=== PATIENT | female | born 1970 | race Caucasian/White ===

== ENCOUNTER 2023-01-16 14:35 | Observation (INO) | payer OTHER ==
[2023-01-16] MEDS: Sodium Chloride 0.9% 10 ML Syringe FLUSH PRN ×2 (14:55→15:05)
[2023-01-16 14:58] LABS: BASOPHILS PERCENT AUTO 0.5 % (0.0-1.0); EOSINOPHILS PERCENT AUTO 13.7 % (1.0-3.0); HEMATOCRIT 41.4 % (37.0-47.0); HEMOGLOBIN 13.5 g/dL (12.0-16.0); LYMPHOCYTES PERCENT AUTO 5.1 % (20.5-50.1); MEAN CORPUSCULAR HEMOGLOBIN 29.5 pg (27.0-34.0); MEAN CORPUSCULAR HGB CONC 32.6 g/dL (33.0-35.0); MEAN CORPUSCULAR VOLUME 90.6 fL (80-100); MONOCYTES PERCENT AUTO 7.8 % (2-8); NEUTROPHILS PERCENT AUTO 72.9 % (42.2-75.2); PLATELET COUNT,PLT 339 10^3/uL (150-450); RED BLOOD CELL COUNT 4.57 10^6/uL (4.2-5.4); WHITE BLOOD CELL COUNT,WBC 16.4 10^3/uL (5.0-10.0)
[2023-01-16] MEDS ORDERED: methylPREDNISolone Sodium Succinate 125 MG/2 ML SDV IVPUSH ONE (15:00)
[2023-01-16] MEDS ORDERED: Albuterol/Ipratropium 3.0-0.5 MG/3 ML Neb Soln NEB ONE ×2 (15:00→15:31)
[2023-01-16 15:09] LABS: ANION GAP 13.6 mEq/L (7-13); BLOOD UREA NITROGEN,BUN 11 mg/dL (7-18); CALCIUM 9.7 mg/dL (8.5-10.1); CARBON DIOXIDE,CO2 28 mmol/L (21-32); CHLORIDE,CL 102 mmol/L (98-107); CREATININE 0.79 mg/dL (0.55-1.02); GLUCOSE RANDOM 103 mg/dL (70-99); POTASSIUM,K 3.6 mmol/L (3.5-5.1); SODIUM,NA 140 mmol/L (136-145)
[2023-01-16 15:14] LABS: ESTIMATED GFR 89 mL/min (>=60)
[2023-01-16 15:33] LABS: CORONAVIRUS COVID-19 NAA NEGATIVE (NEGATIVE); INFLUENZA A NAA NEGATIVE (NEGATIVE); INFLUENZA B NAA NEGATIVE (NEGATIVE); RESPIRATORY SYNCYTIAL VIR NAA NEGATIVE (NEGATIVE)
[2023-01-16] MEDS ORDERED: Ketorolac 30 MG/ML SDV IVPUSH ONE (15:38)
[2023-01-16] MEDS ORDERED: cefTRIAXone 1 GM Vial IVPUSH ONE (15:40)
[2023-01-16] MEDS ORDERED: Azithromycin 500 MG in Sodium Chloride 0.9% 250 ML IV ONE (15:41)
[2023-01-16 16:00] LABS: LACTIC ACID 0.7 mmol/L (0.4-2.0)
[2023-01-16] MEDS ORDERED: Ondansetron 4 MG/2 ML SDV IVPUSH PRN (16:13)
[2023-01-16] MEDS ORDERED: Sodium Chloride 0.9% 10 ML Syringe FLUSH PRN (16:13)
[2023-01-16] MEDS ORDERED: Magnesium Hydroxide 400 MG/5 ML Susp 30 ML Cup PO PRN (16:13)
[2023-01-16] MEDS ORDERED: Acetaminophen 325 MG Tab PO PRN (16:13)
[2023-01-16] MEDS ORDERED: Albuterol/Ipratropium 3.0-0.5 MG/3 ML Neb Soln NEB PRN (16:13)
[2023-01-16] MEDS ORDERED: Sennosides/Docusate Sodium 50-8.6 MG Tab PO PRN (16:13)
[2023-01-16] MEDS ORDERED: Polyethylene Glycol 3350 Powder 17 GM Packet PO PRN (16:13)
[2023-01-16] MEDS ORDERED: Benzonatate 100 MG Cap PO PRN (16:17)
[2023-01-16] MEDS ORDERED: Metoprolol Tartrate 5 MG/5 ML SDV IVPUSH PRN (16:20)
[2023-01-16] MEDS ORDERED: hydrALAZINE 20 MG/ML SDV IVPUSH PRN (16:20)
[2023-01-16] MEDS ORDERED: Famotidine 20 MG/2 ML SDV IVPUSH ONE (16:21)
[2023-01-16] MEDS ORDERED: Magnesium Sulfate/Water 2 GM in Premix Bag 1 BAG IV ONE (16:47)
[2023-01-16] MEDS ORDERED: Glucagon,Human Recombinant 1 MG Vial IM PRN (16:48)
[2023-01-16] MEDS ORDERED: 50% Dextrose in Water 50 ML Syringe IVPUSH PRN (16:48)
[2023-01-16] MEDS ORDERED: Benzonatate 100 MG Cap PO SCH (18:00)
[2023-01-16] MEDS: FLUoxetine 10 MG Cap PO SCH (18:17)
[2023-01-16] MEDS: Albuterol/Ipratropium 3.0-0.5 MG/3 ML Neb Soln NEB SCH ×2 (18:30→21:56)
[2023-01-16] MEDS: Insulin Lispro 100 Units/ML 3 ML Vial SUBCUT SCH (18:30)
[2023-01-16] MEDS ORDERED: Albuterol/Ipratropium 3.0-0.5 MG/3 ML Neb Soln NEB SCH (21:00)
[2023-01-16] MEDS: Melatonin 3 MG Tab PO PRN (21:54)
[2023-01-16] MEDS: Saccharomyces Boulardii (Probiotic) 250 MG Cap PO SCH (21:54)
[2023-01-16] MEDS: Benzonatate 100 MG Cap PO PRN (21:55)
[2023-01-16] MEDS: Sodium Chloride 0.9% 10 ML Syringe FLUSH SCH (22:01)
[2023-01-17] MEDS ORDERED: methylPREDNISolone Sodium Succinate 125 MG/2 ML SDV IVPUSH SCH
[2023-01-17] MEDS ORDERED: Sodium Chloride 0.9% 1,000 ML IV SCH (00:45)
[2023-01-17] MEDS: Albuterol/Ipratropium 3.0-0.5 MG/3 ML Neb Soln NEB SCH ×6 (01:21→18:36)
[2023-01-17] MEDS: Benzonatate 100 MG Cap PO PRN (05:24)
[2023-01-17 06:36] LABS: C-REACTIVE PROTEIN 7.94 ng/dL (<=0.30); CALCIUM 9.1 mg/dL (8.5-10.1); CREATININE 0.62 mg/dL (0.55-1.02); EST CRCL DRUG DOSING (CG) 102.05 mL/min; MAGNESIUM 2.1 mg/dL (1.8-2.4)
[2023-01-17 07:04] LABS: BASOPHILS PERCENT AUTO 0.4 % (0.0-1.0); EOSINOPHILS PERCENT AUTO 2.8 % (1.0-3.0); HEMATOCRIT 37.7 % (37.0-47.0); HEMOGLOBIN 12.2 g/dL (12.0-16.0); LYMPHOCYTES PERCENT AUTO 7.1 % (20.5-50.1); MEAN CORPUSCULAR HEMOGLOBIN 29.3 pg (27.0-34.0); MEAN CORPUSCULAR HGB CONC 32.4 g/dL (33.0-35.0); MEAN CORPUSCULAR VOLUME 90.4 fL (80-100); MONOCYTES PERCENT AUTO 8.2 % (2-8); NEUTROPHILS PERCENT AUTO 81.5 % (42.2-75.2); PLATELET COUNT,PLT 308 10^3/uL (150-450); RED BLOOD CELL COUNT 4.17 10^6/uL (4.2-5.4); WHITE BLOOD CELL COUNT,WBC 12.3 10^3/uL (5.0-10.0)
[2023-01-17] MEDS ORDERED: Iopamidol 755 Mg/ML 100 ML Bottle IVPUSH ONE (07:23)
[2023-01-17] MEDS ORDERED: Potassium Chloride 20 MEQ in Premix Bag 1 BAG IV ONE (07:38)
[2023-01-17] MEDS: Insulin Lispro 100 Units/ML 3 ML Vial SUBCUT SCH ×3 (08:41→17:38)
[2023-01-17] MEDS: cefTRIAXone 1 GM Vial IVPUSH SCH (08:48)
[2023-01-17] MEDS: FLUoxetine 10 MG Cap PO SCH (08:48)
[2023-01-17] MEDS: predniSONE 20 MG Tab PO SCH (08:48)
[2023-01-17] MEDS: Famotidine 20 MG Tab PO SCH ×2 (08:48→20:24)
[2023-01-17] MEDS: Saccharomyces Boulardii (Probiotic) 250 MG Cap PO SCH ×2 (08:48→20:23)
[2023-01-17] MEDS: Azithromycin 500 MG in Sodium Chloride 0.9% 250 ML IV SCH (08:49)
[2023-01-17] MEDS ORDERED: Oxymetazoline 0.05% Nasal Spray 30 ML Bottle NAS PRN (09:03)
[2023-01-17] MEDS ORDERED: Loratadine 10 MG Tab PO ONE (09:05)
[2023-01-17] MEDS: Sodium Chloride 0.9% 10 ML Syringe FLUSH SCH ×2 (10:08→21:21)
[2023-01-17] MEDS: Potassium Chloride 10 MEQ Tab.ER PO SCH (10:17)
[2023-01-17] MEDS: Sodium Chloride 0.65% Nasal Spray 45 ML Bottle NAS SCH ×2 (10:30→21:26)
[2023-01-17] MEDS ORDERED: Furosemide 40 MG Tab PO ONE (11:00)
[2023-01-17] MEDS ORDERED: guaiFENesin 600 MG Tab.ER PO ONE (11:00)
[2023-01-17] MEDS: Acetaminophen/oxyCODONE 325-5 MG Tab PO PRN (20:24)
[2023-01-17] MEDS: guaiFENesin 600 MG Tab.ER PO SCH (20:24)
[2023-01-17] MEDS ORDERED: diphenhydrAMINE 50 MG/ML SDV IVPUSH ONE (20:27)
[2023-01-17] MEDS: Temazepam 15 MG Cap PO PRN (23:32)
[2023-01-17] MEDS: guaiFENesin/Dextromethorphan 100-10 MG/5 ML Soln 5 ML Cup PO PRN (23:32)
[2023-01-18] MEDS: Albuterol/Ipratropium 3.0-0.5 MG/3 ML Neb Soln NEB SCH ×6 (01:20→22:48)
[2023-01-18] MEDS: Acetaminophen/oxyCODONE 325-5 MG Tab PO PRN (05:49)
[2023-01-18] MEDS: guaiFENesin/Dextromethorphan 100-10 MG/5 ML Soln 5 ML Cup PO PRN ×2 (05:50→19:51)
[2023-01-18 06:35] LABS: HEMATOCRIT 38.2 % (37.0-47.0); HEMOGLOBIN 12.4 g/dL (12.0-16.0); MEAN CORPUSCULAR HEMOGLOBIN 29.7 pg (27.0-34.0); MEAN CORPUSCULAR HGB CONC 32.5 g/dL (33.0-35.0); MEAN CORPUSCULAR VOLUME 91.4 fL (80-100); PLATELET COUNT,PLT 353 10^3/uL (150-450); RED BLOOD CELL COUNT 4.18 10^6/uL (4.2-5.4); WHITE BLOOD CELL COUNT,WBC 12.9 10^3/uL (5.0-10.0)
[2023-01-18 06:45] LABS: BASOPHILS PERCENT AUTO 0.7 % (0.0-1.0); EOSINOPHILS PERCENT AUTO 11.4 % (1.0-3.0); LYMPHOCYTES PERCENT AUTO 17.2 % (20.5-50.1); MONOCYTES PERCENT AUTO 6.7 % (2-8)
[2023-01-18] MEDS: HYDROmorphone 0.5 MG/0.5 ML Syringe IVPUSH PRN ×4 (06:46→22:43)
[2023-01-18 06:52] LABS: ANION GAP 13.2 mEq/L (7-13); C-REACTIVE PROTEIN 3.09 ng/dL (<=0.30); CALCIUM 8.8 mg/dL (8.5-10.1); CREATININE 0.72 mg/dL (0.55-1.02); EST CRCL DRUG DOSING (CG) 87.87 mL/min; MAGNESIUM 1.8 mg/dL (1.8-2.4); POTASSIUM,K 3.2 mmol/L (3.5-5.1)
[2023-01-18 07:47] LABS: EOSINOPHILS PERCENT MAN 10 % (1-3); LYMPHOCYTES PERCENT MAN 19 % (20-50); MONOCYTES PERCENT MAN 5 % (2-8); SEG NEUTROPHILS PERCENT MAN 66 % (42-75)
[2023-01-18] MEDS: Insulin Lispro 100 Units/ML 3 ML Vial SUBCUT SCH ×3 (08:42→17:11)
[2023-01-18] MEDS: Saccharomyces Boulardii (Probiotic) 250 MG Cap PO SCH ×2 (08:44→20:57)
[2023-01-18] MEDS: Potassium Chloride 10 MEQ Tab.ER PO SCH (08:45)
[2023-01-18] MEDS: guaiFENesin 600 MG Tab.ER PO SCH ×2 (08:46→20:56)
[2023-01-18] MEDS: Loratadine 10 MG Tab PO SCH (08:47)
[2023-01-18] MEDS: FLUoxetine 10 MG Cap PO SCH (08:47)
[2023-01-18] MEDS: predniSONE 20 MG Tab PO SCH (08:47)
[2023-01-18] MEDS: Famotidine 20 MG Tab PO SCH ×2 (08:47→21:06)
[2023-01-18] MEDS: cefTRIAXone 1 GM Vial IVPUSH SCH (08:48)
[2023-01-18] MEDS: Azithromycin 500 MG in Sodium Chloride 0.9% 250 ML IV SCH (08:48)
[2023-01-18] MEDS ORDERED: Benzocaine/Cetylpyridinium/Menthol Lozenge MUCMEM PRN (09:05)
[2023-01-18] MEDS: Sodium Chloride 0.65% Nasal Spray 45 ML Bottle NAS SCH ×2 (10:30→23:10)
[2023-01-18] MEDS: Sodium Chloride 0.9% 10 ML Syringe FLUSH SCH ×3 (10:32→22:46)
[2023-01-18] MEDS: Benzonatate 100 MG Cap PO PRN ×2 (13:50→20:56)
[2023-01-18] MEDS ORDERED: Potassium Chloride 10 MEQ Tab.ER PO ONE (17:00)
[2023-01-18] MEDS ORDERED: Flumazenil 0.1 MG/ML 5 ML MDV IVPUSH PRN (17:42)
[2023-01-18] MEDS ORDERED: LORazepam 2 MG/ML SDV IVPUSH ONE (20:00)
[2023-01-18] MEDS: Temazepam 15 MG Cap PO PRN (20:57)
[2023-01-18] MEDS: Melatonin 3 MG Tab PO PRN (20:57)
[2023-01-19] MEDS: HYDROmorphone 0.5 MG/0.5 ML Syringe IVPUSH PRN (04:06)
[2023-01-19] MEDS: Sodium Chloride 0.9% 10 ML Syringe FLUSH SCH ×2 (04:08→09:21)
[2023-01-19] MEDS: guaiFENesin/Dextromethorphan 100-10 MG/5 ML Soln 5 ML Cup PO PRN (04:09)
[2023-01-19] MEDS: Albuterol/Ipratropium 3.0-0.5 MG/3 ML Neb Soln NEB SCH ×3 (04:41→11:37)
[2023-01-19] MEDS: Acetaminophen/oxyCODONE 325-5 MG Tab PO PRN ×2 (05:33→09:24)
[2023-01-19] MEDS: Benzonatate 100 MG Cap PO PRN (05:39)
[2023-01-19 06:33] LABS: BASOPHILS PERCENT AUTO 0.9 % (0.0-1.0); EOSINOPHILS PERCENT AUTO 13.7 % (1.0-3.0); HEMATOCRIT 38.3 % (37.0-47.0); HEMOGLOBIN 12.2 g/dL (12.0-16.0); LYMPHOCYTES PERCENT AUTO 23.2 % (20.5-50.1); MEAN CORPUSCULAR HEMOGLOBIN 29.4 pg (27.0-34.0); MEAN CORPUSCULAR HGB CONC 31.9 g/dL (33.0-35.0); MEAN CORPUSCULAR VOLUME 92.3 fL (80-100); MONOCYTES PERCENT AUTO 8.4 % (2-8); NEUTROPHILS PERCENT AUTO 53.8 % (42.2-75.2); PLATELET COUNT,PLT 345 10^3/uL (150-450); RED BLOOD CELL COUNT 4.15 10^6/uL (4.2-5.4); WHITE BLOOD CELL COUNT,WBC 11.5 10^3/uL (5.0-10.0)
[2023-01-19 06:44] LABS: C-REACTIVE PROTEIN 1.93 ng/dL (<=0.30); CREATININE 0.74 mg/dL (0.55-1.02); EST CRCL DRUG DOSING (CG) 85.5 mL/min; MAGNESIUM 1.9 mg/dL (1.8-2.4)
[2023-01-19] MEDS: Insulin Lispro 100 Units/ML 3 ML Vial SUBCUT SCH ×2 (08:07→12:10)
[2023-01-19] MEDS: guaiFENesin 600 MG Tab.ER PO SCH (09:20)
[2023-01-19] MEDS: Famotidine 20 MG Tab PO SCH (09:20)
[2023-01-19] MEDS: FLUoxetine 10 MG Cap PO SCH (09:20)
[2023-01-19] MEDS: predniSONE 20 MG Tab PO SCH (09:20)
[2023-01-19] MEDS: Saccharomyces Boulardii (Probiotic) 250 MG Cap PO SCH (09:21)
[2023-01-19] MEDS: Potassium Chloride 10 MEQ Tab.ER PO SCH (09:21)
[2023-01-19] MEDS: Loratadine 10 MG Tab PO SCH (09:21)
[2023-01-19] MEDS: cefTRIAXone 1 GM Vial IVPUSH SCH (09:21)
[2023-01-19] MEDS: Azithromycin 500 MG in Sodium Chloride 0.9% 250 ML IV SCH (09:21)
[2023-01-19] MEDS: Sodium Chloride 0.65% Nasal Spray 45 ML Bottle NAS SCH (09:22)
[2023-01-19] MEDS ORDERED: Furosemide 40 MG Tab PO ONE (11:34)
== END 2023-01-19 12:45 | disposition home or self-care (01) ==
LOC: DL.ED 14:35 → DL.MS 15:54
PROVIDERS: ADMIT Internal Medicine; ATTEND Internal Medicine
DX: J98.4 Other disorders of lung (principal); J21.9 Acute bronchiolitis, unspecified; J96.91 Respiratory failure, unspecified with hypoxia; R79.1 Abnormal coagulation profile; E87.6 Hypokalemia; D72.829 Elevated white blood cell count, unspecified; R79.82 Elevated C-reactive protein (CRP); R79.89 Other specified abnormal findings of blood chemistry; R73.9 Hyperglycemia, unspecified; G25.81 Restless legs syndrome; R00.2 Palpitations; E66.9 Obesity, unspecified; Z20.822 Contact with and (suspected) exposure to COVID-19; Z68.34 Body mass index [BMI] 34.0-34.9, adult; Z79.899 Other long term (current) drug therapy; Z72.0 Tobacco use; Z86.2 Personal history of diseases of the blood and blood-forming organs and certain disorders involving the immune mechanism
CPT/HCPCS: 0241U; 36415; 71045; 71260; 80048; 82947; 83605; 83735; 85025; 85379; 86140; 87040; 94010; 94060; 94640; 94667; 94668; 94760; 94762; 96365; 96366; 96367; 96368; 96374; 96375; 96376; 99284; 99285-25; A9270-GY; G0378; J0456; J0696; J1170; J1200; J1815-GY; J1885; J2060; J2930; J3475; J3480; J3490; J7030; J7050; J7512; J7620-GY; Q9967

== ENCOUNTER 2024-02-20 12:46 | Inpatient (IN) | payer OTHER ==
[2024-02-20] MEDS ORDERED: Sodium Chloride 0.9% 10 ML Syringe FLUSH PRN (13:15)
[2024-02-20] MEDS: Acetaminophen 500 MG Tab PO ONE (13:25)
[2024-02-20] MEDS: Ketorolac 30 MG/ML SDV IVPUSH ONE (13:25)
[2024-02-20] MEDS: Sodium Chloride 0.9% 1,000 ML IV ONE (13:25)
[2024-02-20 13:28] LABS: BASOPHILS PERCENT AUTO 0.5 % (0.0-1.0); EOSINOPHILS PERCENT AUTO 9.4 % (1.0-3.0); HEMATOCRIT 39.8 % (37.0-47.0); LYMPHOCYTES PERCENT AUTO 4.7 % (20.5-50.1); MEAN CORPUSCULAR HEMOGLOBIN 30.1 pg (27.0-34.0); MEAN CORPUSCULAR HGB CONC 32.7 g/dL (33.0-35.0); MEAN CORPUSCULAR VOLUME 92.1 fL (80-100); MONOCYTES PERCENT AUTO 5.1 % (2-8); NEUTROPHILS PERCENT AUTO 80.3 % (42.2-75.2); PLATELET COUNT,PLT 369 10^3/uL (150-450); RED BLOOD CELL COUNT 4.32 10^6/uL (4.2-5.4); WHITE BLOOD CELL COUNT,WBC 17.1 10^3/uL (5.0-10.0)
[2024-02-20 13:55] LABS: LACTIC ACID 0.9 mmol/L (0.4-2.0)
[2024-02-20] MEDS: cefTRIAXone 2 GM Vial IVPUSH ONE (13:56)
[2024-02-20] MEDS: Azithromycin 500 MG in Sodium Chloride 0.9% 250 ML IV ONE (13:56)
[2024-02-20 13:58] LABS: HCG QUALITATIVE,SERUM NEGATIVE (NEGATIVE)
[2024-02-20 14:05] LABS: ALANINE AMINOTRANSFERASE,ALT 19 U/L (14-59); ALBUMIN 3.8 g/dL (3.4-5.0); ALKALINE PHOSPHATASE 97 U/L (46-116); ANION GAP 11.6 mEq/L (7-13); ASPARTATE AMNIOTRANSFERASE,AST 12 U/L (15-37); BILIRUBIN TOTAL 1.1 mg/dL (0.2-1.0); BLOOD UREA NITROGEN,BUN 17 mg/dL (7-18); C-REACTIVE PROTEIN 2.29 ng/dL (<=0.50); CARBON DIOXIDE,CO2 28 mmol/L (21-32); CHLORIDE,CL 104 mmol/L (98-107); CREATININE 0.85 mg/dL (0.55-1.02); EST CRCL DRUG DOSING (CG) 73.58 mL/min; ESTIMATED GFR 81 mL/min (>=60); GLUCOSE RANDOM 96 mg/dL (70-99); MAGNESIUM 1.9 mg/dL (1.8-2.4); POTASSIUM,K 3.6 mmol/L (3.5-5.1); PROTEIN TOTAL,TP 7.7 g/dL (6.4-8.2); SODIUM,NA 140 mmol/L (136-145)
[2024-02-20] MEDS: Albuterol 0.083% 2.5 MG/3 ML Neb Soln NEB ONE (14:16)
[2024-02-20] MEDS ORDERED: HYDROmorphone 0.5 MG/0.5 ML Syringe IVPUSH PRN (14:47)
[2024-02-20] MEDS ORDERED: Ondansetron 4 MG/2 ML SDV IVPUSH PRN (14:47)
[2024-02-20] MEDS ORDERED: Acetaminophen 325 MG Tab PO PRN (14:47)
[2024-02-20] MEDS ORDERED: Metoclopramide 10 MG/2 ML SDV IVPUSH PRN (14:54)
[2024-02-20] MEDS ORDERED: hydrALAZINE 20 MG/ML SDV IVPUSH PRN (14:56)
[2024-02-20] MEDS ORDERED: Benzonatate 100 MG Cap PO PRN (16:51)
[2024-02-20] MEDS: methylPREDNISolone Sodium Succinate 40 MG/1 ML SDV IVPUSH SCH (17:36)
[2024-02-20] MEDS: Albuterol/Ipratropium 3.0-0.5 MG/3 ML Neb Soln NEB SCH (17:40)
[2024-02-20] MEDS: Saccharomyces Boulardii (Probiotic) 250 MG Cap PO SCH (21:34)
[2024-02-20] MEDS: guaiFENesin 600 MG Tab.ER PO SCH (21:34)
[2024-02-20] MEDS: Temazepam 15 MG Cap PO PRN (21:39)
[2024-02-21 06:21] LABS: BASOPHILS PERCENT AUTO 0.1 % (0.0-1.0); EOSINOPHILS PERCENT AUTO 0.1 % (1.0-3.0); HEMATOCRIT 36.4 % (37.0-47.0); HEMOGLOBIN 11.9 g/dL (12.0-16.0); LYMPHOCYTES PERCENT AUTO 2.9 % (20.5-50.1); MEAN CORPUSCULAR HEMOGLOBIN 30.5 pg (27.0-34.0); MEAN CORPUSCULAR HGB CONC 32.7 g/dL (33.0-35.0); MEAN CORPUSCULAR VOLUME 93.3 fL (80-100); MONOCYTES PERCENT AUTO 0.7 % (2-8); NEUTROPHILS PERCENT AUTO 96.2 % (42.2-75.2); PLATELET COUNT,PLT 332 10^3/uL (150-450); WHITE BLOOD CELL COUNT,WBC 15.3 10^3/uL (5.0-10.0)
[2024-02-21 06:49] LABS: ALBUMIN 3.3 g/dL (3.4-5.0); ANION GAP 12.4 mEq/L (7-13); BILIRUBIN TOTAL 0.6 mg/dL (0.2-1.0); BUN/CREATININE RATIO 22.1 (No establ ref range); C-REACTIVE PROTEIN 5.38 ng/dL (<=0.50); CALCIUM 9.2 mg/dL (8.5-10.1); CREATININE 0.68 mg/dL (0.55-1.02); EST CRCL DRUG DOSING (CG) 91.97 mL/min; MAGNESIUM 2.1 mg/dL (1.8-2.4); POTASSIUM,K 4.4 mmol/L (3.5-5.1); PROTEIN TOTAL,TP 7.2 g/dL (6.4-8.2)
[2024-02-21 06:57] LABS: A/G RATIO 0.85
[2024-02-21] MEDS: Pantoprazole 40 MG Vial IVPUSH SCH (09:05)
[2024-02-21] MEDS: cefTRIAXone 2 GM Vial IVPUSH SCH (09:09)
[2024-02-21] MEDS: Azithromycin 500 MG in Sodium Chloride 0.9% 250 ML IV SCH (09:15)
[2024-02-21] MEDS: Acetaminophen/Butalbital/Caffeine 325-50-40 MG Tab PO PRN (09:21)
[2024-02-21] MEDS: Acetaminophen/oxyCODONE 325-5 MG Tab PO PRN (19:59)
[2024-02-22 06:31] LABS: BASOPHILS PERCENT AUTO 0.1 % (0.0-1.0); EOSINOPHILS PERCENT AUTO 0.1 % (1.0-3.0); HEMATOCRIT 35.9 % (37.0-47.0); HEMOGLOBIN 11.6 g/dL (12.0-16.0); LYMPHOCYTES PERCENT AUTO 3.3 % (20.5-50.1); MEAN CORPUSCULAR HEMOGLOBIN 30.5 pg (27.0-34.0); MEAN CORPUSCULAR HGB CONC 32.3 g/dL (33.0-35.0); MEAN CORPUSCULAR VOLUME 94.5 fL (80-100); NEUTROPHILS PERCENT AUTO 94.5 % (42.2-75.2); PLATELET COUNT,PLT 353 10^3/uL (150-450); WHITE BLOOD CELL COUNT,WBC 16.7 10^3/uL (5.0-10.0)
[2024-02-22 06:51] LABS: A/G RATIO 0.82; ALBUMIN 3.1 g/dL (3.4-5.0); ANION GAP 12.6 mEq/L (7-13); BILIRUBIN TOTAL 0.4 mg/dL (0.2-1.0); BUN/CREATININE RATIO 22.2 (No establ ref range); C-REACTIVE PROTEIN 2.14 ng/dL (<=0.50); CALCIUM 9.1 mg/dL (8.5-10.1); CREATININE 0.63 mg/dL (0.55-1.02); EST CRCL DRUG DOSING (CG) 99.27 mL/min; MAGNESIUM 2.2 mg/dL (1.8-2.4); POTASSIUM,K 4.6 mmol/L (3.5-5.1); PROTEIN TOTAL,TP 6.9 g/dL (6.4-8.2)
[2024-02-23 06:01] LABS: BASOPHILS PERCENT AUTO 0.1 % (0.0-1.0); EOSINOPHILS PERCENT AUTO 0.1 % (1.0-3.0); HEMATOCRIT 35.2 % (37.0-47.0); HEMOGLOBIN 11.3 g/dL (12.0-16.0); LYMPHOCYTES PERCENT AUTO 3.8 % (20.5-50.1); MEAN CORPUSCULAR HEMOGLOBIN 30.3 pg (27.0-34.0); MEAN CORPUSCULAR HGB CONC 32.1 g/dL (33.0-35.0); MEAN CORPUSCULAR VOLUME 94.4 fL (80-100); PLATELET COUNT,PLT 380 10^3/uL (150-450); RED BLOOD CELL COUNT 3.73 10^6/uL (4.2-5.4); WHITE BLOOD CELL COUNT,WBC 14.1 10^3/uL (5.0-10.0)
[2024-02-23 06:37] LABS: ALBUMIN 3.1 g/dL (3.4-5.0); ANION GAP 13.5 mEq/L (7-13); BILIRUBIN TOTAL 0.3 mg/dL (0.2-1.0); CALCIUM 9.1 mg/dL (8.5-10.1); CREATININE 0.68 mg/dL (0.55-1.02); EST CRCL DRUG DOSING (CG) 91.97 mL/min; MAGNESIUM 2.3 mg/dL (1.8-2.4); POTASSIUM,K 4.5 mmol/L (3.5-5.1); PROTEIN TOTAL,TP 6.7 g/dL (6.4-8.2)
[2024-02-23 06:42] LABS: A/G RATIO 0.86
== END 2024-02-23 12:45 | disposition home or self-care (01) | DRG 871 ==
LOC: DL.ED 12:46 → DL.MS 14:21 → DL.ED 15:17
PROVIDERS: ADMIT Internal Medicine; ATTEND Internal Medicine
DX: A41.9 Sepsis, unspecified organism (principal); J18.9 Pneumonia, unspecified organism; J98.11 Atelectasis; F10.90 Alcohol use, unspecified, uncomplicated; G25.81 Restless legs syndrome; E66.9 Obesity, unspecified; F15.90 Other stimulant use, unspecified, uncomplicated; E88.09 Other disorders of plasma-protein metabolism, not elsewhere classified; Z79.1 Long term (current) use of non-steroidal anti-inflammatories (NSAID); Z79.2 Long term (current) use of antibiotics; Z79.899 Other long term (current) drug therapy; Z79.51 Long term (current) use of inhaled steroids; Z90.49 Acquired absence of other specified parts of digestive tract; Z68.22 Body mass index [BMI] 22.0-22.9, adult
CPT/HCPCS: 36415; 71046; 80053; 83605; 83735; 84145; 84484; 84703; 85025; 86140; 87040; 87428-QW; 94618; 94640; 94667; 96361; 96365; 96375; 99223; 99232; 99238; 99285; 99285-25; A9270-GY; J0456; J0696; J1885; J2470; J2919; J7030; J7050; J7613-GY; J7620-GY

== ENCOUNTER 2024-05-23 15:57 | Emergency (ER) | payer OTHER ==
[2024-05-23] MEDS ORDERED: Sodium Chloride 0.9% 10 ML Syringe FLUSH PRN (16:33)
[2024-05-23 17:28] LABS: B-TYPE NATRIURETIC PEPTIDE,BNP 13 pg/ml (0-100)
[2024-05-23 17:29] LABS: INR 0.9 (0.9-1.2); PROTHROMBIN TIME 9.5 SEC (9.0-12.0); PTT,PARTIAL THROMBOPLSTIN TIME 26.8 SEC (22.0-34.0)
[2024-05-23 17:33] LABS: A/G RATIO 0.9; ALANINE AMINOTRANSFERASE,ALT 20 U/L (14-59); ALBUMIN 3.5 g/dL (3.4-5.0); ALKALINE PHOSPHATASE 132 U/L (46-116); ANION GAP 17.7 mEq/L (7-13); ASPARTATE AMNIOTRANSFERASE,AST 13 U/L (15-37); BLOOD UREA NITROGEN,BUN 18 mg/dL (7-18); C-REACTIVE PROTEIN 5.88 ng/dL (<=0.50); CALCIUM 9.1 mg/dL (8.5-10.1); CARBON DIOXIDE,CO2 21 mmol/L (21-32); CHLORIDE,CL 104 mmol/L (98-107); EST CRCL DRUG DOSING (CG) 103.02 mL/min; GLUCOSE RANDOM 103 mg/dL (70-99); MAGNESIUM 1.9 mg/dL (1.8-2.4); POTASSIUM,K 3.7 mmol/L (3.5-5.1); PROTEIN TOTAL,TP 7.6 g/dL (6.4-8.2); SODIUM,NA 139 mmol/L (136-145)
[2024-05-23 17:34] LABS: ESTIMATED GFR 106 mL/min (>=60)
[2024-05-23 17:36] LABS: LACTIC ACID 1.2 mmol/L (0.4-2.0)
[2024-05-23] MEDS: Ibuprofen 800 MG Tab PO ONE (17:36)
[2024-05-23 17:39] LABS: HEMATOCRIT 39.1 % (37.0-47.0); HEMOGLOBIN 13.1 g/dL (12.0-16.0); MEAN CORPUSCULAR HEMOGLOBIN 29.5 pg (27.0-34.0); MEAN CORPUSCULAR HGB CONC 33.5 g/dL (33.0-35.0); MEAN CORPUSCULAR VOLUME 88.1 fL (80-100); PLATELET COUNT,PLT 300 10^3/uL (150-450); RED BLOOD CELL COUNT 4.44 10^6/uL (4.2-5.4); WHITE BLOOD CELL COUNT,WBC 12.8 10^3/uL (5.0-10.0)
[2024-05-23 17:42] LABS: BASOPHILS PERCENT AUTO 0.2 % (0.0-1.0); EOSINOPHILS PERCENT AUTO 0.7 % (1.0-3.0); LYMPHOCYTES PERCENT AUTO 7.1 % (20.5-50.1); MONOCYTES PERCENT AUTO 9.5 % (2-8); NEUTROPHILS PERCENT AUTO 82.5 % (42.2-75.2)
[2024-05-23 17:52] LABS: LYMPHOCYTES PERCENT MAN 7 % (20-50); MONOCYTES PERCENT MAN 11 % (2-8); SEG NEUTROPHILS PERCENT MAN 82 % (42-75)
[2024-05-23] MEDS: Albuterol 0.083% 2.5 MG/3 ML Neb Soln NEB ONE (18:30)
[2024-05-23] MEDS: Magnesium Sulf/Wat 2 GM/50 mL 2 GM in Premix Bag 1 BAG IV ONE (18:31)
[2024-05-23] MEDS: Dexamethasone 4 MG/ML SDV IVPUSH ONE (18:31)
[2024-05-23] MEDS: Montelukast 10 MG Tab PO ONE (18:50)
[2024-05-23] MEDS: Levofloxacin 250 MG Tab PO ONE (18:51)
== END 2024-05-23 19:37 | disposition home or self-care (01) ==
LOC: DL.ED 15:57
DX: J18.9 Pneumonia, unspecified organism (principal); Z90.49 Acquired absence of other specified parts of digestive tract; Z79.899 Other long term (current) drug therapy
CPT/HCPCS: 36415; 71046; 80053; 83605; 83735; 83880; 84484; 85025; 85379; 85610; 85730; 86140; 87040; 96365; 96375; 99283; 99285-25; A9270-GY; J1100; J3475